=== PATIENT | female | born 1970 | race Caucasian/White ===

== ENCOUNTER → 2017-10-15 | Outpatient (CLI) | payer BC ==
[2017-10-15] MEDS: GADOBUTROL 7.5 MMOL/7.5 ML VIAL IV (11:12)
== END | disposition home or self-care (01) ==
LOC: KCIC MRI 09:35
DX: M48.02 Spinal stenosis, cervical region (principal); M25.78 Osteophyte, vertebrae; M51.26 Other intervertebral disc displacement, lumbar region; M48.061 Spinal stenosis, lumbar region without neurogenic claudication; M25.552 Pain in left hip; Z98.890 Other specified postprocedural states
CPT/HCPCS: 72148; 72156; 73721; A9585

== ENCOUNTER → 2018-03-31 | Outpatient (CLI) | payer BC ==
[~2018-03-31] MED LIST: GABA300C18 PO; GADOBUTROL 7.5 MMOL/7.5 ML VIAL IV ONE; LEVO112T4 PO; TRAM50TA PO
--- NOTE | 2018-04-04 13:53 | KCIC ---
MRI of the cervical spine without and with contrast 03/31/2018 CLINICAL HISTORY: Neck pain and myelopathy. History of surgery for a Chiari malformation and syrinx. TECHNIQUE: Unenhanced T1-weighted, T2-weighted and inversion recovery sagittal and gradient echo and T2-weighted axial images of the cervical spine were obtained. After the intravenous administration of 7 cc of Gadavist, enhanced T1-weighted sagittal and axial images of the cervical spine were obtained. The patient was brought back for precontrast T1-weighted axial images of the cervical spine which was performed on 04/04/2018. FINDINGS: Comparison study is dated 10/15/2017. There is reversal of the normal cervical lordosis. The patient is post fusion extending from the occipital bone to T1. The patient appears to be post suboccipital craniectomy. Increased signal intensity is seen involving the posterior aspect of the cervical spinal cord on the T2-weighted and inversion recovery images at the C1-2 level which measures 1.6 cm in greatest diameter. It is consistent with an area of myelomalacia. It is unchanged. No new area of abnormal signal intensity is seen involving the cervical spinal cord. Degenerative signal changes are seen involving all of the disks of the cervical spine. Degenerative signal changes are seen within the marrow surrounding these discs. No area of abnormal contrast enhancement is noted. The patient is post laminectomy extending from C1 to C4. Degenerative changes are seen throughout the cervical disc spaces consisting of minimal to mild generalized disc bulges and degenerative changes involving the uncovertebral and facet joints. These findings do not result in significant central spinal canal or neural foraminal stenosis. Since the previous examination, there has been no significant interval change. IMPRESSION: Postsurgical changes are seen involving the cervical spine as outlined above. An area of myelomalacia is seen involving the cervical spinal cord, unchanged. No new area of abnormal signal intensity is seen involving the cervical spinal cord. No area of significant central spinal canal or neural foraminal stenosis is seen. Electronically signed by: Bradly Nichols MD (04/04/2018 1:48 PM) [email or web address]
== END | disposition home or self-care (01) ==
LOC: KCIC MRI 12:27
PROVIDERS: ATTEND Physician Assistant
DX: M47.12 Other spondylosis with myelopathy, cervical region (principal); Z98.890 Other specified postprocedural states
CPT/HCPCS: 72156; A9585

== ENCOUNTER → 2020-08-07 | Outpatient (CLI) | payer BC ==
[~2020-08-07] MED LIST changes: -GADOBUTROL 7.5 MMOL/7.5 ML VIAL IV ONE; -LEVO112T4 PO; +LEVO112T49 PO
--- NOTE | 2020-08-08 08:25 | KCIC ---
EXAMINATION: Magnetic resonance imaging (MRI) of the cervical spine without contrast 08/07/2020 3:00 P M HISTORY: Cervicalgia TECHNIQUE: Multiplanar multi-weighted MRI of the cervical spine was performed without intravenous con trast using the standard cervical spine protocol. Contrast information: None administered COMPARISON: MRI cervical spine 03/31/2018 FINDINGS: There is reversal of the normal cervical lordosis centered at C5-C6. No significant spondylolisthesis . Disc heights are maintained. There is disc desiccation at all levels of the cervical spine. Vertebr al body heights are maintained. No acute fractures identified. There is cord signal alteration at the craniocervical junction appears stable the prior examination. There is mild volume loss at the infer ior aspect of the medulla. Cerebellum is normal in appearance. Vertebral artery flow voids are mainta ined. There is suboccipital decompression with fusion from the occiput through the upper thoracic spi ne, similar to the prior examination. There is decompression of the spinal canal without residual spi nal canal stenosis. No compressive epidural hematoma is identified. Suspect atlantoaxial fusion as we ll as osseous fusion of the dens and clivus. C2-C3: Disc is normal in configuration. There is mild facet arthropathy. No neuroforaminal or spinal canal stenosis. Minimal fluid signal identified along the right hemicord, stable. C3-C4: Disc is normal in configuration. There is mild facet arthropathy. No neuroforaminal or residua l spinal canal stenosis status post laminectomy decompression. C4-C5: There is a posterior disc osteophyte complex. Mild right facet arthropathy. Moderate uncoverte bral joint disease. Mild right neuroforaminal stenosis. No residual spinal canal stenosis status post laminectomy and posterior fusion. C5-C6: There is no significant disc herniation. No significant facet or uncovertebral joint disease. There is no neuroforaminal or residual spinal canal stenosis. C6-C7: Mild disc bulge. Mild facet arthropathy. Mild uncovertebral joint disease. No neuroforaminal o r residual spinal canal stenosis. C7-T1: Disc is normal in configuration. No neuroforaminal or spinal canal stenosis. IMPRESSION: Stable postsurgical changes from suboccipital decompression and fusion from the occiput through the u pper thoracic spine. There is no residual spinal canal stenosis. There is persistent cord signal alte ration at the craniocervical junction which is unchanged. Cerebellar tonsils extend to the mid C2 carrie tebral level. Electronically signed by: Katelin Bailey MD (08/08/2020 8:23 AM) [id number]
== END ==
LOC: KCIC MRI 14:48
PROVIDERS: ATTEND Family Medicine
DX: M47.812 Spondylosis without myelopathy or radiculopathy, cervical region (principal); M40.40 Postural lordosis, site unspecified
CPT/HCPCS: 72141